=== PATIENT | male | born 1990 | race Caucasian/White ===

== ENCOUNTER → 2019-02-02 | Outpatient (CLI) | payer OTHER ==
--- NOTE | 2019-02-02 18:51 | RADIOLOGY REPORT (SQ) ---
EXAM DESCRIPTION: MRI HEAD WITHOUT COMPLETED DATE/TIME: 02/02/2019 6:10 pm REASON FOR STUDY: G96.8 OTHER SPECIFIED DISORDERS OF CENTRAL NERVOUS SYSTEM G96.8 OTHER SPECIFIED D ISORDERS OF CENTRAL NERVOUS SYSTEM COMPARISON: None. TECHNIQUE: Multiplanar imaging includes non-contrasted T1, T2, FLAIR, and diffusion with ADC map seq uences. Images stored on PACS. LIMITATIONS: None. FINDINGS: ANATOMY: No anomalies. Normal vascular flow voids. Pituitary fossa normal. CSF SPACES: Normal in size and contour. No hemorrhage. CEREBRUM: Sulci and gyri normal in size and contour. There are few small scattered areas of increase d white matter signal on FLAIR imaging. Cannot exclude an 8 mm old infarct just above the left later al ventricle. See image 22 series 5. See image 19 series 6. See image 15 series 3. No evidence of hemorrhage, mass, or extraaxial fluid collection. POSTERIOR FOSSA: No signal alteration. No hemorrhage. No edema, masses or mass effect. Internal kadeem tory canals, cerebello-pontine angles, mastoids normal. DIFFUSION IMAGING: Negative for acute or sub-acute infarction. ORBITS: No masses. Globes normal. PARANASAL SINUSES: No fluid levels. Mucosa normal. OTHER: No other significant finding. IMPRESSION: There are some small areas of increased signal in the periventricular white matter sugge sting mild chronic microvascular changes. Cannot exclude a very small old infarct on the left. Cons ider CT without with contrast. EVIDENCE OF ACUTE STROKE: NO. TECHNICAL DOCUMENTATION: JOB ID: [id number] [employer]- All Rights Reserved Reading location - IP/workstation name: [email or web address]
== END ==
LOC: RAD 16:37
PROVIDERS: ATTEND Family Medicine
DX: G96.8 Other specified disorders of central nervous system (principal)
CPT/HCPCS: 70551